=== PATIENT | female | born 1995 | race Hispanic/Latino ===

== ENCOUNTER 2019-12-31 11:07 | Outpatient (CLI) | payer OTHER ==
[2019-12-31 11:42] LABS: Bilirubin,Urine NEG (Negative); Blood,Urine NEG (Negative); Color,Urine Yellow (Yellow); Mucus,Urine FEW /HPF; Protein,Urine <15 mg/dL mg/dL (Negative); Urobilinogen,Urine < 2.0 mg/dL (<2.0)
[2019-12-31] MEDS ORDERED: LACTATED RINGERS 1,000 ML IV SCH (12:00)
[2019-12-31 12:30] LABS: Hematocrit 30.7 % (30.3-42.9); Hemoglobin 10.8 gm/dl (10.1-14.3); Mean Corpuscular HGB Conc 35 % (30-34); Mean Corpuscular Volume 91 fl (79-97); Platelet Count 246 K/mm3 (140-440); Red Blood Count 3.38 M/mm3 (3.65-5.03); Red Cell Distribution Width 12.7 % (13.2-15.2)
[2019-12-31 12:53] LABS: Alanine Aminotransferase 15 units/L (7-56); Uric Acid 2.6 mg/dL (3.5-7.6)
[2019-12-31] MEDS ORDERED: ACETAMINOPHEN 500 MG TAB PO ONE (13:22)
[2019-12-31 13:33] VITALS: BP 116/61
== END 2019-12-31 13:54 | disposition home or self-care (01) ==
LOC: TRG 11:07
PROVIDERS: ATTEND Obstetrics & Gynecology
DX: O26.892 Other specified pregnancy related conditions, second trimester (principal); H53.8 Other visual disturbances; R42 Dizziness and giddiness; Z3A.21 21 weeks gestation of pregnancy
CPT/HCPCS: 36415; 81001; 82565; 83615; 84450; 84460; 84550; 85027

== ENCOUNTER 2020-04-20 09:56 | Outpatient (CLI) | payer OTHER ==
[2020-04-20] MEDS ORDERED: ONDANSETRON 4 MG/2 ML INJ IM ONE (10:40)
[2020-04-20] MEDS ORDERED: LACTATED RINGERS 1,000 ML IV ONE (10:40)
[2020-04-20] MEDS ORDERED: DIPHENOXYLATE/ATROPINE TAB PO ONE (10:41)
[2020-04-20] MEDS ORDERED: ONDANSETRON 4 MG/2 ML INJ ONE (11:00)
[2020-04-20] MEDS ORDERED: ONDANSETRON 4 MG/2 ML INJ IV ONE (11:03)
[2020-04-20 11:45] LABS: Basophils % (Auto) 0.2 % (0.0-1.8); Eosinophils # (Auto) 0.1 K/mm3 (0.0-0.4); Eosinophils % (Auto) 0.6 % (0.0-4.3); Hematocrit 30.4 % (30.3-42.9); Hemoglobin 10.2 gm/dl (10.1-14.3); Lymphocytes # (Auto) 1.5 K/mm3 (1.2-5.4); Lymphocytes % (Auto) 11.9 % (13.4-35.0); Mean Corpuscular HGB Conc 34 % (30-34); Mean Corpuscular Volume 87 fl (79-97); Monocytes % (Auto) 8.2 % (0.0-7.3); Platelet Count 340 K/mm3 (140-440); Red Cell Distribution Width 12.7 % (13.2-15.2)
[2020-04-20 11:50] LABS: Bacteria,Urine 1+ /HPF (Negative); Bilirubin,Urine NEG (Negative); Blood,Urine NEG (Negative); Color,Urine Straw (Yellow); Mucus,Urine FEW /HPF; Protein,Urine <15 mg/dL mg/dL (Negative); Urobilinogen,Urine < 2.0 mg/dL (<2.0)
[2020-04-20 12:14] LABS: Alanine Aminotransferase 7 units/L (7-56); Albumin 3.6 g/dL (3.9-5); BUN/Creatinine Ratio 10; Blood Urea Nitrogen 3 mg/dL (7-17); Calcium 9.5 mg/dL (8.4-10.2); Hemolysis Index 2
[2020-04-20 17:33] VITALS: BP 131/68
== END 2020-04-20 18:11 | disposition home or self-care (01) ==
LOC: TRG 09:56 → APU 09:56 → TRG 18:11
PROVIDERS: ATTEND Obstetrics & Gynecology
DX: O21.2 Late vomiting of pregnancy (principal); O26.893 Other specified pregnancy related conditions, third trimester; R19.7 Diarrhea, unspecified; O47.1 False labor at or after 37 completed weeks of gestation; O99.513 Diseases of the respiratory system complicating pregnancy, third trimester; J45.909 Unspecified asthma, uncomplicated; O99.343 Other mental disorders complicating pregnancy, third trimester; F32.9 Major depressive disorder, single episode, unspecified; Z3A.37 37 weeks gestation of pregnancy
CPT/HCPCS: 36415; 59025; 80053; 81001; 85025; 87086; 96361; 96374; J2405; J7120; 96360